=== PATIENT | male | born 1975 ===

== ENCOUNTER 2020-11-09 12:08 | Observation (INO) ==
[~2020-11-09 12:08] MED LIST: Buffered Lidocaine 1% SYRIN 1 ml INTRADERM ONE; DiMENhydriNATE IV 50 mg/ml 1 ml VIAL IV PUSH ONE; HYDROcodone/ACETAMIN 5/325 mg TAB PO PRN; Lactated Ringers 1000 ml BAG 1,000 ML IV SCH; Metoclopramide 5 MG/ML VIAL (10 mg) IV PRN; Naloxone 0.4 mg VIAL 0.4 mg/ml 1 ml VIAL IV PRN; Ondansetron 4 mg VIAL 2 MG/ML 2 ml VIAL IV PRN
[2020-11-09] MEDS ORDERED: DiMENhydriNATE IV 50 mg/ml 1 ml VIAL ONE (12:38)
[2020-11-09] MEDS ORDERED: ceFAZolin 2 GM PREMIX 2 GM/50 ML BAG ONE (12:38)
[2020-11-09] MEDS ORDERED: Rocuronium 50 mg VIAL 10 mg/ml 5 ml VIAL (50 mg) ONE ×2 (14:23→17:52)
[2020-11-09] MEDS ORDERED: Midazolam 2 mg/2 ml VIAL 1 mg/ml 2 ml VIAL (2 mg) ONE (14:23)
[2020-11-09] MEDS ORDERED: fentaNYL 250 mcg/5 ml 50 MCG/ML 5 ml VIAL (250 MCG) ONE (14:23)
[2020-11-09] MEDS ORDERED: Ketamine HCL 50 mg/ml 10 ml VIAL (500 MG) ONE (14:24)
[2020-11-09] MEDS ORDERED: Propofol 10 MG/ML 20 ML BTL ONE (15:24)
[2020-11-09] MEDS ORDERED: Dexamethasone IV 4 MG/ML VIAL 1 ml VIAL ONE ×2 (15:24→16:47)
[2020-11-09] MEDS ORDERED: Lidocaine 2% PF 5 ML VIAL ONE (15:25)
[2020-11-09] MEDS ORDERED: Bacitracin INJECTION 50,000 UNITS ONE (15:27)
[2020-11-09] MEDS ORDERED: Phenylephrine IV 10 MG/ML 1 ml VIAL ONE (16:36)
[2020-11-09] MEDS ORDERED: Ondansetron 4 mg VIAL 2 MG/ML 2 ml VIAL ONE (17:42)
[2020-11-09] MEDS ORDERED: fentaNYL 100 mcg/2 ml 50 MCG/ML VIAL ONE (19:54)
[2020-11-09] MEDS: fentaNYL 100 mcg/2 ml 50 MCG/ML VIAL IV PRN ×2 (19:55→21:14)
[2020-11-09] MEDS ORDERED: Magnesium Hydroxide LIQ 30 ML UDC PO PRN (20:09)
[2020-11-09] MEDS ORDERED: Ondansetron 4 mg VIAL 2 MG/ML 2 ml VIAL IV PRN (20:09)
[2020-11-09] MEDS ORDERED: HYDROcodone/ACETAMIN 5/325 mg TAB PO PRN ×2 (20:09)
[2020-11-09] MEDS ORDERED: HYDROcodone/ACETAMIN 5/325 mg TAB ONE ×2 (21:38→21:41)
[2020-11-10 10:33] VITALS: BP 130/74
== END 2020-11-10 11:20 | disposition home or self-care (01) ==
LOC: SSU 12:08 → OR 12:08
PROVIDERS: ADMIT Neurological Surgery; ATTEND Neurological Surgery